=== PATIENT | female | born 1980 | race Caucasian/White ===

== ENCOUNTER 2018-01-18 07:13 | Day surgery (SDC) | payer OTHER ==
[~2018-01-18 07:13] MED LIST: LACTATED RINGER'S 1,000 ML IV*
[2018-01-19] MEDS ORDERED: PROPOFOL 20 ML (09:47)
[2018-01-19] MEDS ORDERED: MIDAZOLAM 1 MG/ML 2 ML INJ (09:47)
[2018-01-19] MEDS ORDERED: GLYCOPYRROLATE 0.4 MG INJ (09:47)
[2018-01-19] MEDS ORDERED: LIDOCAINE 2% (SDV) 5 ML INJ (09:47)
[2018-01-19] MEDS ORDERED: FENTAnyl 50 MCG/ML VIAL (09:47)
[2018-01-19] MEDS ORDERED: ROCURONIUM 50 MG INJ (09:47)
[2018-01-19] MEDS ORDERED: NEOSTIGMINE 3 MG/3 ML SYRINGE (09:47)
[2018-01-19] MEDS ORDERED: DEXAMETHASONE 4 MG/ML 1 ML INJ (09:48)
[2018-01-19] MEDS ORDERED: ONDANSETRON 4 MG INJ (09:48)
[2018-01-19] MEDS ORDERED: FLUMAZENIL 0.5 MG INJ (10:27)
== END 2018-01-18 10:51 | disposition home or self-care (01) ==
LOC: SDS 07:13
DX: N87.9 Dysplasia of cervix uteri, unspecified (principal); Z53.8 Procedure and treatment not carried out for other reasons
CPT/HCPCS: 86850; 86900; 86901

== ENCOUNTER 2018-01-19 11:00 | Day surgery (SDC) | payer OTHER ==
[~2018-01-19 11:00] MED LIST changes: +CEFAZOLIN 1 GM INJ; +DEXAMETHASONE 4 MG/ML 1 ML INJ; +FENTAnyl 50 MCG/ML VIAL; +GLYCOPYRROLATE 0.4 MG INJ; -LACTATED RINGER'S 1,000 ML IV*; +LIDOCAINE 2% (SDV) 5 ML INJ; +MIDAZOLAM 1 MG/ML 2 ML INJ; +NEOSTIGMINE 3 MG/3 ML SYRINGE; +ONDANSETRON 4 MG INJ; +PROPOFOL 200 MG INJ; +ROCURONIUM 50 MG INJ; +SUCCINYLCHOLINE CHLORIDE 100 MG/5 ML SYG IV
[2018-01-19] MEDS ORDERED: SUCCINYLCHOLINE CHLORIDE 100 MG/5 ML SYG IV (11:45)
[2018-01-19] MEDS ORDERED: LIDOCAINE 1%/EPI 30 ML INJ ×2 (11:50→13:39)
[2018-01-19] MEDS ORDERED: MIDAZOLAM 1 MG/ML 2 ML INJ IV (12:30)
[2018-01-19] MEDS ORDERED: OXYCODONE/ACETAMINOPHEN (5/325) TAB PO (12:30)
[2018-01-19] MEDS ORDERED: DIPHENHYDRAMINE 50 MG INJ IV (12:30)
[2018-01-19] MEDS ORDERED: EPHEDrine SULFATE 50 MG/5 ML SYG IV (12:30)
[2018-01-19] MEDS ORDERED: LABETALOL HCL 20MG INJ IV (12:30)
[2018-01-19] MEDS ORDERED: ATROPINE 1 MG/10 ML SYRINGE IV (12:30)
[2018-01-19] MEDS ORDERED: FENTAnyl 50 MCG/ML VIAL IV ×2 (12:30)
[2018-01-19] MEDS ORDERED: HYDROmorphONE 1 MG/5 ML IV SYRINGE IV ×3 (12:30)
[2018-01-19] MEDS ORDERED: FERRIC SUBSULFATE 8 GM VIAL TOP (12:30)
[2018-01-19] MEDS ORDERED: hydrALAzine 20 MG INJ IV (12:30)
[2018-01-19] MEDS ORDERED: ONDANSETRON 4 MG INJ IV (12:30)
[2018-01-19] MEDS ORDERED: morphine (1 MG/ML) 10ML SYRINGE IV ×3 (12:30)
[2018-01-19] MEDS ORDERED: MEPERIDINE 25 MG INJ IV (12:30)
[2018-01-19] MEDS: LIDOCAINE 1%/EPI 30 ML INJ INJ (13:15)
[2018-01-19] MEDS: FERRIC SUBSULFATE 8 GM VIAL TOP (13:20)
[2018-01-19] MEDS: OXYCODONE/ACETAMINOPHEN (5/325) TAB PO (15:42)
== END 2018-01-20 16:17 | disposition home or self-care (01) ==
LOC: SDS 11:00
DX: N87.9 Dysplasia of cervix uteri, unspecified (principal); I10 Essential (primary) hypertension
CPT/HCPCS: 57522; 88305

== ENCOUNTER 2018-06-18 09:24 | Emergency (ER) | payer OTHER | END 2018-06-18 09:50 | disposition home or self-care (01) | LOC: FTE 09:24 | DX: J02.9 Acute pharyngitis, unspecified (principal) | CPT/HCPCS: 99283; Z7502 ==

== ENCOUNTER 2018-06-18 20:42 | Emergency (ER) | payer OTHER ==
[2018-06-18] MEDS: KETOROLAC 60 MG INJ IM (23:44)
[2018-06-19] MEDS: LEVALBUTEROL (NEB) 1.25 MG/0.5 ML AMP HHN (00:36)
== END 2018-06-19 01:06 | disposition home or self-care (01) ==
LOC: FTE 06-19 01:06
DX: J40 Bronchitis, not specified as acute or chronic (principal)
CPT/HCPCS: 71046; 81025; 96372; 99284-25